=== PATIENT | male | born 1970 | race Caucasian/White ===

== ENCOUNTER 2021-07-15 04:19 | Observation (INO) ==
[2021-07-15 05:54] LABS: Basophils # 0.1 K/mcL (0.0-0.2); Basophils % 0.8 %; Eosinophils # 0.5 K/mcL (0.0-0.6); Eosinophils % 5.9 %; Hemoglobin 15.4 g/dL (12.9-16.9); Immature Granulocytes % 0.1 % (0-4); Lymphocytes % 26.2 %; Mean Corpuscular HGB Conc 34.2 g/dL (31.6-35.5); Mean Corpuscular Hemoglobin 31.8 pg (28.0-33.3); Mean Corpuscular Volume 92.8 fL (83.0-100.0); Mean Platelet Volume 9.4 fL (9.4-12.4); Monocytes # 0.5 K/mcL (0.0-1.3); Neutrophils # 4.6 K/mcL (1.6-8.9); Platelet Count 194 K/mcL (140-400); Red Blood Count 4.85 M/mcL (4.19-5.50); Red Cell Distribution Width 12.4 % (11.5-14.5); White Blood Count 7.6 K/mcL (4.3-11.1)
[2021-07-15 06:24] LABS: Alanine Aminotransferase 40 Units/L (7-52); Albumin 4.8 g/dL (3.5-5.7); Albumin/Globulin Ratio 1.9 (1.1-2.2); Alkaline Phosphatase 96 Units/L (34-104); Aspartate Amino Transferase 26 Units/L (13-39); BUN/Creatinine Ratio 12 (6-26); Bilirubin,Direct 0.2 mg/dL (0.0-0.2); Bilirubin,Indirect 1.3 mg/dL (0.0-1.0); Bilirubin,Total 1.5 mg/dL (0.3-1.0); Blood Urea Nitrogen 11 mg/dL (6-20); Calcium 9.5 mg/dL (8.6-10.3); Carbon Dioxide 28 mEq/L (23-29); Chloride 104 mEq/L (98-107); Globulin 2.5 g/dL (2.4-3.5); Glucose 103 mg/dL (70-105); Lipase 38 Units/L (11-82); Osmolality,Calculated 290 (280-300); Potassium 3.6 mEq/L (3.5-5.1); Sodium 140 mEq/L (136-145); Total Protein 7.3 g/dL (6.4-8.9); Troponin I 0.03 ng/mL (< 0.04); eGFR For African Americans > 60 (> 60); eGFR For Non-African Americans > 60 (> 60)
[2021-07-15] MEDS ORDERED: Aspirin 325 MG TABLET PO ONE (06:53)
[2021-07-15] MEDS ORDERED: Ondansetron 4 MG/2 ML VIAL IVP PRN (07:48)
[2021-07-15] MEDS ORDERED: Acetaminophen 325 MG TABLET PO PRN (07:48)
[2021-07-15] MEDS ORDERED: Naloxone 0.4 MG/ML INJ IVP PRN (07:48)
[2021-07-15] MEDS ORDERED: Perflutren Lipid Microsphere 1.3 ML in 0.9 % Sodium Chloride 8.7 ML IVP PRN (07:51)
[2021-07-15] MEDS ORDERED: Nitroglycerin 0.4 MG TAB.SUBL SL PRN (07:52)
[2021-07-15] MEDS ORDERED: Regadenoson 0.4 MG/5 ML SYRINGE IVP ONE (09:02)
[2021-07-15] MEDS: Aspirin 81 MG TAB.CHEW PO SCH (12:47)
[2021-07-15] MEDS: *HR* Heparin 5,000 UNIT/ML VIAL SQ SCH ×2 (14:08→20:50)
[2021-07-16 01:50] LABS: Basophils # 0.1 K/mcL (0.0-0.2); Basophils % 0.9 %; Eosinophils # 0.5 K/mcL (0.0-0.6); Eosinophils % 5.3 %; Hematocrit 42.5 % (37.5-50.1); Hemoglobin 14.9 g/dL (12.9-16.9); Immature Granulocytes % 0.2 % (0-4); Lymphocytes # 3.5 K/mcL (0.6-4.6); Lymphocytes % 37.8 %; Mean Corpuscular HGB Conc 35.1 g/dL (31.6-35.5); Mean Corpuscular Hemoglobin 32.5 pg (28.0-33.3); Mean Corpuscular Volume 92.8 fL (83.0-100.0); Mean Platelet Volume 9.5 fL (9.4-12.4); Monocytes # 0.6 K/mcL (0.0-1.3); Monocytes % 6.6 %; Neutrophils # 4.6 K/mcL (1.6-8.9); Platelet Count 194 K/mcL (140-400); Red Blood Count 4.58 M/mcL (4.19-5.50); Red Cell Distribution Width 12.3 % (11.5-14.5); Segmented Neutrophils % 49.2 %; White Blood Count 9.4 K/mcL (4.3-11.1)
[2021-07-16 02:04] LABS: BUN/Creatinine Ratio 16 (6-26); Blood Urea Nitrogen 15 mg/dL (6-20); Carbon Dioxide 28 mEq/L (23-29); Chloride 106 mEq/L (98-107); Chol/HDL Ratio 3.5 (0-4.9); Cholesterol 121 mg/dL (< 200); Glucose 86 mg/dL (70-105); HDL Cholesterol 35 mg/dL (40-59); LDL Cholesterol,Calculated 65 mg/dL (< 100); Osmolality,Calculated 292 (280-300); Potassium 3.6 mEq/L (3.5-5.1); Sodium 141 mEq/L (136-145); Triglycerides 106 mg/dL (< 150); eGFR For African Americans > 60 (> 60); eGFR For Non-African Americans > 60 (> 60)
[2021-07-16 03:18] VITALS: O2SAT 97
[2021-07-16] MEDS: *HR* Heparin 5,000 UNIT/ML VIAL SQ SCH (05:19)
[2021-07-16 06:50] VITALS: BP 129/74; PULSE 50; TEMP 97.5
[2021-07-16] MEDS: Aspirin 81 MG TAB.CHEW PO SCH (10:03)
== END 2021-07-16 11:43 | disposition home or self-care (01) ==
LOC: EMEROOARM 04:19 → 3BNU 04:19
PROVIDERS: ADMIT General Practice; ATTEND General Practice